=== PATIENT | male | born 1925 | race Asian ===

== ENCOUNTER 2016-12-17 11:09 | Inpatient (IN) | payer MEDICARE, OTHER ==
[~2016-12-17] VITALS: Ht 162.6 cm; Wt 47.9 kg
[~2016-12-17 11:09] MED LIST: ACET-784 PO; AMLO-512 PO; ASPI-556 PO; BENADRYL; DUTA.5; MULTI VIT PO
[2016-12-17] MEDS ORDERED: LISI-660 PO (11:19)
[2016-12-17] MEDS ORDERED: HEPA100D17 SQ (11:19)
[2016-12-17 12:23] LABS: BASOPHILS % (AUTO) 0.2 % (0.0-2.0); EOSINOPHILS % (AUTO) 0.8 % (1.0-6.0); HEMATOCRIT 33.9 % (41-53); HEMOGLOBIN 10.9 g/dL (13.5-17.5); LYMPHOCYTES # (AUTO) 0.8 K/uL (1.0-4.8); LYMPHOCYTES % (AUTO) 5.5 % (22.0-44.0); MEAN CORPUSCULAR HEMOGLOBIN 26.7 pg (26.0-34.0); MEAN CORPUSCULAR HGB CONC 32.3 G/dL (31.0-37.0); MEAN CORPUSCULAR VOLUME 83 fL (80-100); MONOCYTES # (AUTO) 0.9 K/uL (0.1-1.0); MONOCYTES % (AUTO) 6.4 % (2.0-9.0); NEUTROPHILS # (AUTO) 12.4 K/uL (1.8-7.7); NEUTROPHILS % (AUTO) 87.1 % (40.0-70.0); PLATELET COUNT (AUTO) 479 K/uL (150-450); RED BLOOD CELL COUNT(AUTO) 4.08 MIL/uL (4.50-5.90); RED CELL DISTRIBUTION WIDTH 16.1 % (11.5-14.5); WHITE BLOOD COUNT (AUTO) 14.2 K/uL (4.5-11.0)
[2016-12-17 12:32] LABS: ANION GAP 13 mmol/L (8-16); CALCIUM, TOTAL 8.4 mg/dL (8.8-10.5); CARBON DIOXIDE 27 mmol/L (22-29); CHLORIDE 100 mmol/L (98-107); CREATININE 0.86 mg/dL (0.60-1.30); GLOMERULAR FILTR. RATE CALC > 60 mL/min (>60); POTASSIUM 3.5 mmol/L (3.5-5.1); SODIUM SERUM 140 mmol/L (136-145); UREA NITROGEN, BLOOD 11 mg/dL (7-18)
[2016-12-17 12:35] LABS: INFLUENZA TYPE B NEGATIVE FOR TYPE B (NEGATIVE)
[2016-12-17 12:39] LABS: ALANINE AMINOTRANSFERASE 80 U/L (12-78); ALBUMIN 2.2 g/dL (3.4-5.0); ASPARTATE AMINOTRANSFERASE 64 U/L (15-37); BILIRUBIN,TOTAL 0.4 mg/dL (0.1-1.0); CREATINE KINASE, TOTAL 43 U/L (39-308); TOTAL PROTEIN, SERUM 7.8 g/dL (6.4-8.2)
[2016-12-17 12:41] LABS: LACTIC ACID 1.2 mmol/L (0.4-2.0)
[2016-12-17 12:45] LABS: APPEARANCE,URINE CLEAR (CLEAR); GLUCOSE, URINE (UA) NEGATIVE (NEGATIVE); KETONES,URINE >=80 mg/dL (NEGATIVE); LEUKOCYTE ESTERASE ,URINE NEGATIVE (NEGATIVE); OCCULT BLOOD,URINE NEGATIVE (NEGATIVE); PH,URINE 6.5 (5.0-8.0); PROTEIN,URINE SEE CONFIRM (NEGATIVE)
[2016-12-17 12:48] LABS: B-TYPE NATRIURETIC PEPTIDE 159 pg/mL (0-100); RBC MORPHOLOGY COMMENT NORMAL RBC MORPH
[2016-12-17 12:54] LABS: ADD UA MICROSCOPIC YES
[2016-12-17 12:56] LABS: SULFOSALICYLIC ACID,URINE 3+ (Negative)
[2016-12-17 12:57] LABS: RBC,URINE None Seen /HPF (0-2); SQUAMOUS EPITHELIAL CELL,UR Rare /LPF (None Seen); WBC,URINE 0-2 /HPF (0-5)
[2016-12-17 12:58] LABS: HYALINE CASTS, URINE 0-2 /LPF (None Seen)
[2016-12-17 13:31] LABS: PROCALCITONIN (PCT) 0.25 ng/mL (<0.50)
[2016-12-17] MEDS ORDERED: LEVOFLOXACIN 500 MG/D5% WATER 100 ML IV ONE (14:00)
[2016-12-17] MEDS ORDERED: PIPERACILLIN/TAZO 3.375 GM/D5W 50 ML IV ONE (14:00)
[2016-12-17] MEDS ORDERED: ACETAMINOPHEN 325 MG TABLET PO PRN ×2 (14:15→18:45)
[2016-12-17] MEDS ORDERED: ONDANSETRON HCL 4 MG/2 ML VIAL IVP PRN ×2 (14:15→18:45)
[2016-12-17 14:48] VITALS: BP 144/83
[2016-12-17] MEDS ORDERED: ALBUTEROL SULFATE 2.5 MG/0.5 ML NEB SOLUTION NEB SCH (15:00)
[2016-12-17] MEDS ORDERED: IPRATROPIUM BROMIDE 0.5 MG/2.5 ML NEB SOLUTION NEB SCH (15:00)
[2016-12-17] MEDS ORDERED: SODIUM CHLORIDE 0.9% 250 ML IV ONE (15:31)
[2016-12-17] MEDS ORDERED: LEVO88TA4 PO (17:56)
[2016-12-17] MEDS ORDERED: FLUT16H NASAL (17:56)
[2016-12-17] MEDS ORDERED: ALLO100T PO (17:56)
[2016-12-17] MEDS ORDERED: ACET-2247 PO (17:56)
[2016-12-17] MEDS ORDERED: ASPI-1093 PO (17:56)
[2016-12-17] MEDS ORDERED: ROFL500T PO (17:56)
[2016-12-17] MEDS ORDERED: IPRA4AER IH (17:56)
[2016-12-17] MEDS ORDERED: MULT1CAP32 PO (17:56)
[2016-12-17] MEDS ORDERED: MONT10TA21 PO (17:56)
[2016-12-17] MEDS ORDERED: ATOR10TA84 PO (17:56)
[2016-12-17] MEDS ORDERED: FINA5TAB41 PO (17:56)
[2016-12-17] MEDS ORDERED: LISI-661 PO (17:56)
[2016-12-17] MEDS ORDERED: AMLO-512 PO (17:56)
[2016-12-17] MEDS ORDERED: PNEUMOCOCCAL VACCINE POLYVALENT 0.5 ML VIAL [PPSV23] IM ONE (18:30)
[2016-12-17] MEDS ORDERED: HYDROCODONE/ACETAMINOPHEN 5-325 MG TABLET PO PRN ×2 (18:45)
[2016-12-17] MEDS ORDERED: MAGNESIUM HYDROXIDE SUSPENSION 30 ML UDCUP PO PRN (18:45)
[2016-12-17] MEDS ORDERED: ZOLPIDEM TARTRATE 5 MG TABLET PO PRN (18:45)
[2016-12-17] MEDS ORDERED: OxyCODONE HCL/ACETAMINOPHEN 5-325 MG TABLET PO PRN (18:45)
[2016-12-17 19:23] VITALS: BP 130/58
[2016-12-17] MEDS: ALBUTEROL SULFATE 2.5 MG/0.5 ML NEB SOLUTION NEB SCH ×2 (19:45→23:11)
[2016-12-17] MEDS: IPRATROPIUM BROMIDE 0.5 MG/2.5 ML NEB SOLUTION NEB SCH ×2 (19:45→23:11)
[2016-12-17] MEDS ORDERED: IOVERSOL 350 MG/ML 100 ML VIAL ONE (20:41)
[2016-12-17] MEDS ORDERED: SODIUM CHLORIDE 0.9% 100 ML ONE (20:41)
[2016-12-17] MEDS: DOCUSATE SODIUM 100 MG CAPSULE PO SCH (21:31)
[2016-12-17] MEDS: ATORVASTATIN CALCIUM 10 MG TABLET PO SCH (21:31)
[2016-12-17 23:26] VITALS: BP 115/53
[2016-12-17] MEDS: HEPARIN SODIUM,PORCINE 5,000 UNITS/ML VIAL SQ SCH (23:43)
[2016-12-18] MEDS: IPRATROPIUM BROMIDE 0.5 MG/2.5 ML NEB SOLUTION NEB SCH ×6 (03:28→23:15)
[2016-12-18] MEDS: ALBUTEROL SULFATE 2.5 MG/0.5 ML NEB SOLUTION NEB SCH ×6 (03:28→23:15)
[2016-12-18 04:14] VITALS: BP 112/49
[2016-12-18] MEDS: LEVOTHYROXINE SODIUM 88 MCG TABLET PO SCH (06:03)
[2016-12-18 07:55] VITALS: BP 118/66
[2016-12-18] MEDS: MONTELUKAST SODIUM 10 MG TABLET PO SCH (08:39)
[2016-12-18] MEDS: MULTIVITAMINS, THERAPEUTIC TABLET PO SCH (08:39)
[2016-12-18] MEDS: ASPIRIN 81 MG EC TABLET PO SCH (08:39)
[2016-12-18] MEDS: LISINOPRIL 10 MG TABLET PO SCH (08:39)
[2016-12-18] MEDS: HEPARIN SODIUM,PORCINE 5,000 UNITS/ML VIAL SQ SCH ×2 (08:39→16:28)
[2016-12-18] MEDS: DOCUSATE SODIUM 100 MG CAPSULE PO SCH ×2 (08:39→20:15)
[2016-12-18] MEDS: ALLOPURINOL 100 MG TABLET PO SCH (08:40)
[2016-12-18] MEDS: FINASTERIDE 5 MG TABLET PO SCH (08:40)
[2016-12-18] MEDS: AmLODIPine BESYLATE 10 MG TABLET PO SCH (08:40)
[2016-12-18] MEDS: PANTOPRAZOLE SODIUM 40 MG DR TABLET PO SCH (08:40)
[2016-12-18] MEDS: ROFLUMILAST 500 MCG TABLET PO SCH (08:40)
[2016-12-18] MEDS: FLUTICASONE PROPIONATE 50 MCG/SPRAY 16 GM NASAL SPRAY NASAL SCH (08:41)
[2016-12-18] MEDS ORDERED: SODIUM CHLORIDE 0.9% 100 ML ONE (14:35)
[2016-12-18] MEDS: LEVOFLOXACIN 750 MG/D5% WATER 150 ML IV SCH (14:38)
[2016-12-18 15:01] VITALS: BP 139/64
[2016-12-18 16:22] VITALS: BP 122/58
[2016-12-18 18:53] LABS: EOSINOPHILS % (AUTO) 1.3 % (1.0-6.0); HEMATOCRIT 29.4 % (41-53); HEMOGLOBIN 9.5 g/dL (13.5-17.5); LYMPHOCYTES # (AUTO) 0.9 K/uL (1.0-4.8); LYMPHOCYTES % (AUTO) 7.4 % (22.0-44.0); MEAN CORPUSCULAR HEMOGLOBIN 26.6 pg (26.0-34.0); MEAN CORPUSCULAR HGB CONC 32.3 G/dL (31.0-37.0); MEAN CORPUSCULAR VOLUME 82 fL (80-100); MONOCYTES # (AUTO) 1.1 K/uL (0.1-1.0); MONOCYTES % (AUTO) 9.1 % (2.0-9.0); NEUTROPHILS # (AUTO) 9.6 K/uL (1.8-7.7); NEUTROPHILS % (AUTO) 82.2 % (40.0-70.0); PLATELET COUNT (AUTO) 518 K/uL (150-450); RED BLOOD CELL COUNT(AUTO) 3.57 MIL/uL (4.50-5.90); RED CELL DISTRIBUTION WIDTH 16.1 % (11.5-14.5); WHITE BLOOD COUNT (AUTO) 11.6 K/uL (4.5-11.0)
[2016-12-18 19:06] LABS: ANION GAP 9 mmol/L (8-16); CALCIUM, TOTAL 7.9 mg/dL (8.8-10.5); CARBON DIOXIDE 28 mmol/L (22-29); CHLORIDE 104 mmol/L (98-107); CREATININE 0.83 mg/dL (0.60-1.30); GLOMERULAR FILTR. RATE CALC > 60 mL/min (>60); POTASSIUM 3.4 mmol/L (3.5-5.1); SODIUM SERUM 141 mmol/L (136-145); UREA NITROGEN, BLOOD 8 mg/dL (7-18)
[2016-12-18 19:10] LABS: ALANINE AMINOTRANSFERASE 59 U/L (12-78); ALBUMIN 1.8 g/dL (3.4-5.0); ASPARTATE AMINOTRANSFERASE 46 U/L (15-37); BILIRUBIN,TOTAL 0.4 mg/dL (0.1-1.0); TOTAL PROTEIN, SERUM 6.8 g/dL (6.4-8.2)
[2016-12-18 19:43] VITALS: BP 119/55
[2016-12-18] MEDS: ATORVASTATIN CALCIUM 10 MG TABLET PO SCH (20:14)
[2016-12-18 23:04] VITALS: BP 130/89
[2016-12-19] MEDS: HEPARIN SODIUM,PORCINE 5,000 UNITS/ML VIAL SQ SCH ×3 (00:30→15:41)
[2016-12-19] MEDS: IPRATROPIUM BROMIDE 0.5 MG/2.5 ML NEB SOLUTION NEB SCH ×8 (02:54→23:00)
[2016-12-19] MEDS: ALBUTEROL SULFATE 2.5 MG/0.5 ML NEB SOLUTION NEB SCH ×8 (02:54→23:00)
[2016-12-19] MEDS: LORazepam 1 MG TABLET PO PRN ×3 (03:11→16:39)
[2016-12-19 04:05] VITALS: BP 115/50
[2016-12-19] MEDS ORDERED: 0.9% SODIUM CHLORIDE 5 ML NEB SOLUTION NEB ONE (04:38)
[2016-12-19 06:48] LABS: BASOPHILS # (AUTO) 0.02 K/uL (0.00-0.20); BASOPHILS % (AUTO) 0.2 % (0.0-2.0); EOSINOPHILS # (AUTO) 0.07 K/uL (0.00-0.70); EOSINOPHILS % (AUTO) 0.68 % (1.0-6.0); HEMATOCRIT 27.8 % (41-53); HEMOGLOBIN 9.3 g/dL (13.5-17.5); LYMPHOCYTES # (AUTO) 0.6 K/uL (1.0-4.8); LYMPHOCYTES % (AUTO) 5.5 % (22.0-44.0); MEAN CORPUSCULAR HEMOGLOBIN 27.1 pg (26.0-34.0); MEAN CORPUSCULAR HGB CONC 33.5 G/dL (31.0-37.0); MEAN CORPUSCULAR VOLUME 81 fL (80-100); MONOCYTES # (AUTO) 0.8 K/uL (0.1-1.0); MONOCYTES % (AUTO) 7.7 % (2.0-9.0); NEUTROPHILS # (AUTO) 9.5 K/uL (1.8-7.7); PLATELET COUNT (AUTO) 472 K/uL (150-450); RED BLOOD CELL COUNT(AUTO) 3.43 MIL/uL (4.50-5.90); RED CELL DISTRIBUTION WIDTH 16.9 % (11.5-14.5)
[2016-12-19 07:00] LABS: ALANINE AMINOTRANSFERASE 49 U/L (12-78); ALBUMIN 1.7 g/dL (3.4-5.0); ANION GAP 13 mmol/L (8-16); ASPARTATE AMINOTRANSFERASE 37 U/L (15-37); BILIRUBIN,TOTAL 0.3 mg/dL (0.1-1.0); CALCIUM, TOTAL 7.7 mg/dL (8.8-10.5); CARBON DIOXIDE 26 mmol/L (22-29); CHLORIDE 105 mmol/L (98-107); CREATININE 0.88 mg/dL (0.60-1.30); GLOMERULAR FILTR. RATE CALC > 60 mL/min (>60); SODIUM SERUM 144 mmol/L (136-145); TOTAL PROTEIN, SERUM 6.7 g/dL (6.4-8.2); UREA NITROGEN, BLOOD 7 mg/dL (7-18)
[2016-12-19 07:06] LABS: NEUTROPHILS % (AUTO) 86.1 % (40.0-70.0)
[2016-12-19 07:07] LABS: RBC MORPHOLOGY COMMENT NORMAL RBC MORPH
[2016-12-19 07:15] VITALS: BP 114/56
[2016-12-19 07:24] LABS: POTASSIUM 2.9 mmol/L (3.5-5.1)
[2016-12-19] MEDS: AmLODIPine BESYLATE 10 MG TABLET PO SCH (08:42)
[2016-12-19] MEDS: ROFLUMILAST 500 MCG TABLET PO SCH (08:42)
[2016-12-19] MEDS: PANTOPRAZOLE SODIUM 40 MG DR TABLET PO SCH (08:42)
[2016-12-19] MEDS: LISINOPRIL 10 MG TABLET PO SCH (08:42)
[2016-12-19] MEDS: MULTIVITAMINS, THERAPEUTIC TABLET PO SCH (08:42)
[2016-12-19] MEDS: LEVOTHYROXINE SODIUM 88 MCG TABLET PO SCH (08:42)
[2016-12-19] MEDS: ALLOPURINOL 100 MG TABLET PO SCH (08:42)
[2016-12-19] MEDS: FINASTERIDE 5 MG TABLET PO SCH (08:43)
[2016-12-19] MEDS: FLUTICASONE PROPIONATE 50 MCG/SPRAY 16 GM NASAL SPRAY NASAL SCH (08:43)
[2016-12-19] MEDS: DOCUSATE SODIUM 100 MG CAPSULE PO SCH ×2 (08:43→21:00)
[2016-12-19] MEDS: MONTELUKAST SODIUM 10 MG TABLET PO SCH (08:43)
[2016-12-19] MEDS: ASPIRIN 81 MG EC TABLET PO SCH (08:43)
[2016-12-19] MEDS ORDERED: POTASSIUM CHLORIDE 20 MEQ ER TABLET PO ONE ×2 (10:30→16:00)
[2016-12-19 10:56] VITALS: BP 122/62
[2016-12-19] MEDS: LEVOFLOXACIN 750 MG/D5% WATER 150 ML IV SCH (14:36)
[2016-12-19] MEDS ORDERED: SODIUM CHLORIDE 0.9% 100 ML ONE (14:43)
[2016-12-19 15:36] VITALS: BP 118/48
[2016-12-19] MEDS: BENZONATATE 100 MG CAPSULE PO SCH (17:53)
[2016-12-19] MEDS: BUDESONIDE 0.5 MG/2 ML NEB SOLUTION NEB SCH (19:26)
[2016-12-19 20:08] VITALS: BP 131/58
[2016-12-19] MEDS: ATORVASTATIN CALCIUM 10 MG TABLET PO SCH (21:00)
[2016-12-19 23:42] VITALS: BP 116/53
[2016-12-20] MEDS: ALBUTEROL SULFATE 2.5 MG/0.5 ML NEB SOLUTION NEB SCH ×6 (03:00→22:53)
[2016-12-20] MEDS: IPRATROPIUM BROMIDE 0.5 MG/2.5 ML NEB SOLUTION NEB SCH ×6 (03:00→22:53)
[2016-12-20 04:37] VITALS: BP 117/50
[2016-12-20] MEDS: LEVOTHYROXINE SODIUM 88 MCG TABLET PO SCH (05:44)
[2016-12-20 06:41] LABS: ALANINE AMINOTRANSFERASE 41 U/L (12-78); ALBUMIN 1.8 g/dL (3.4-5.0); ANION GAP 8 mmol/L (8-16); ASPARTATE AMINOTRANSFERASE 36 U/L (15-37); BILIRUBIN,TOTAL 0.3 mg/dL (0.1-1.0); CALCIUM, TOTAL 8.5 mg/dL (8.8-10.5); CARBON DIOXIDE 26 mmol/L (22-29); CHLORIDE 109 mmol/L (98-107); CREATININE 0.85 mg/dL (0.60-1.30); GLOMERULAR FILTR. RATE CALC > 60 mL/min (>60); POTASSIUM 4.5 mmol/L (3.5-5.1); SODIUM SERUM 143 mmol/L (136-145); TOTAL PROTEIN, SERUM 6.7 g/dL (6.4-8.2); UREA NITROGEN, BLOOD 8 mg/dL (7-18)
[2016-12-20 06:58] LABS: BASOPHILS # (AUTO) 0.06 K/uL (0.00-0.20); BASOPHILS % (AUTO) 0.7 % (0.0-2.0); EOSINOPHILS # (AUTO) 0.12 K/uL (0.00-0.70); HEMOGLOBIN 9.6 g/dL (13.5-17.5); LYMPHOCYTES # (AUTO) 0.9 K/uL (1.0-4.8); LYMPHOCYTES % (AUTO) 10.1 % (22.0-44.0); MEAN CORPUSCULAR HEMOGLOBIN 27.2 pg (26.0-34.0); MEAN CORPUSCULAR HGB CONC 33.1 G/dL (31.0-37.0); MEAN CORPUSCULAR VOLUME 82 fL (80-100); MONOCYTES # (AUTO) 0.6 K/uL (0.1-1.0); MONOCYTES % (AUTO) 7.1 % (2.0-9.0); NEUTROPHILS % (AUTO) 80.8 % (40.0-70.0); PLATELET COUNT (AUTO) 460 K/uL (150-450); RED BLOOD CELL COUNT(AUTO) 3.54 MIL/uL (4.50-5.90); RED CELL DISTRIBUTION WIDTH 16.7 % (11.5-14.5); WHITE BLOOD COUNT (AUTO) 8.7 K/uL (4.5-11.0)
[2016-12-20 07:09] VITALS: BP 121/57
[2016-12-20] MEDS: MONTELUKAST SODIUM 10 MG TABLET PO SCH (09:41)
[2016-12-20] MEDS: PANTOPRAZOLE SODIUM 40 MG DR TABLET PO SCH (09:41)
[2016-12-20] MEDS: MULTIVITAMINS, THERAPEUTIC TABLET PO SCH (09:41)
[2016-12-20] MEDS: LISINOPRIL 10 MG TABLET PO SCH (09:41)
[2016-12-20] MEDS: ALLOPURINOL 100 MG TABLET PO SCH (09:41)
[2016-12-20] MEDS: ASPIRIN 81 MG EC TABLET PO SCH (09:42)
[2016-12-20] MEDS: ROFLUMILAST 500 MCG TABLET PO SCH (09:42)
[2016-12-20] MEDS: DOCUSATE SODIUM 100 MG CAPSULE PO SCH ×2 (09:42→20:32)
[2016-12-20] MEDS: FINASTERIDE 5 MG TABLET PO SCH (09:42)
[2016-12-20] MEDS: AmLODIPine BESYLATE 10 MG TABLET PO SCH (09:42)
[2016-12-20] MEDS: HEPARIN SODIUM,PORCINE 5,000 UNITS/ML VIAL SQ SCH ×3 (09:43→17:06)
[2016-12-20] MEDS: BENZONATATE 100 MG CAPSULE PO SCH ×3 (09:43→17:05)
[2016-12-20] MEDS: FLUTICASONE PROPIONATE 50 MCG/SPRAY 16 GM NASAL SPRAY NASAL SCH (09:43)
[2016-12-20] MEDS: BUDESONIDE 0.5 MG/2 ML NEB SOLUTION NEB SCH ×2 (10:21→19:47)
[2016-12-20 11:27] VITALS: BP 127/52
[2016-12-20] MEDS ORDERED: SODIUM CHLORIDE 0.9% 100 ML ONE (14:26)
[2016-12-20] MEDS: LEVOFLOXACIN 750 MG/D5% WATER 150 ML IV SCH (14:51)
[2016-12-20 14:58] VITALS: BP 134/57
[2016-12-20 19:34] VITALS: BP 124/62
[2016-12-20] MEDS: GuaiFENesin SR 600 MG ER TABLET PO SCH (20:32)
[2016-12-20] MEDS: ATORVASTATIN CALCIUM 10 MG TABLET PO SCH (20:32)
[2016-12-20 23:54] VITALS: BP 130/67
[2016-12-21] MEDS: BENZONATATE 100 MG CAPSULE PO SCH ×4 (00:46→23:09)
[2016-12-21] MEDS: LORazepam 1 MG TABLET PO PRN (00:46)
[2016-12-21] MEDS: IPRATROPIUM BROMIDE 0.5 MG/2.5 ML NEB SOLUTION NEB SCH ×6 (01:49→22:44)
[2016-12-21] MEDS: ALBUTEROL SULFATE 2.5 MG/0.5 ML NEB SOLUTION NEB SCH ×6 (01:49→22:44)
[2016-12-21 04:28] VITALS: BP 119/51
[2016-12-21] MEDS: LEVOTHYROXINE SODIUM 88 MCG TABLET PO SCH (05:19)
[2016-12-21 07:12] LABS: ALANINE AMINOTRANSFERASE 37 U/L (12-78); ALBUMIN 1.9 g/dL (3.4-5.0); ANION GAP 8 mmol/L (8-16); ASPARTATE AMINOTRANSFERASE 35 U/L (15-37); BILIRUBIN,TOTAL 0.3 mg/dL (0.1-1.0); CALCIUM, TOTAL 8.5 mg/dL (8.8-10.5); CARBON DIOXIDE 29 mmol/L (22-29); CHLORIDE 107 mmol/L (98-107); CREATININE 0.84 mg/dL (0.60-1.30); GLOMERULAR FILTR. RATE CALC > 60 mL/min (>60); POTASSIUM 3.8 mmol/L (3.5-5.1); SODIUM SERUM 144 mmol/L (136-145); TOTAL PROTEIN, SERUM 7.2 g/dL (6.4-8.2); UREA NITROGEN, BLOOD 7 mg/dL (7-18)
[2016-12-21 07:21] LABS: BASOPHILS % (AUTO) 0.7 % (0.0-2.0); EOSINOPHILS % (AUTO) 1.8 % (1.0-6.0); HEMATOCRIT 30.6 % (41-53); HEMOGLOBIN 9.8 g/dL (13.5-17.5); LYMPHOCYTES # (AUTO) 0.7 K/uL (1.0-4.8); LYMPHOCYTES % (AUTO) 7.2 % (22.0-44.0); MEAN CORPUSCULAR HEMOGLOBIN 26.7 pg (26.0-34.0); MEAN CORPUSCULAR VOLUME 83 fL (80-100); MONOCYTES # (AUTO) 0.6 K/uL (0.1-1.0); MONOCYTES % (AUTO) 6.3 % (2.0-9.0); NEUTROPHILS # (AUTO) 7.6 K/uL (1.8-7.7); PLATELET COUNT (AUTO) 439 K/uL (150-450); RED BLOOD CELL COUNT(AUTO) 3.67 MIL/uL (4.50-5.90); RED CELL DISTRIBUTION WIDTH 16.7 % (11.5-14.5); WHITE BLOOD COUNT (AUTO) 9.1 K/uL (4.5-11.0)
[2016-12-21] MEDS: BUDESONIDE 0.5 MG/2 ML NEB SOLUTION NEB SCH ×2 (07:52→19:42)
[2016-12-21 08:28] VITALS: BP 141/62
[2016-12-21] MEDS: HEPARIN SODIUM,PORCINE 5,000 UNITS/ML VIAL SQ SCH ×4 (08:57→23:10)
[2016-12-21] MEDS: FLUTICASONE PROPIONATE 50 MCG/SPRAY 16 GM NASAL SPRAY NASAL SCH (08:57)
[2016-12-21] MEDS: DOCUSATE SODIUM 100 MG CAPSULE PO SCH ×2 (08:57→20:32)
[2016-12-21] MEDS: ASPIRIN 81 MG EC TABLET PO SCH (08:57)
[2016-12-21] MEDS: MONTELUKAST SODIUM 10 MG TABLET PO SCH (08:58)
[2016-12-21] MEDS: AmLODIPine BESYLATE 10 MG TABLET PO SCH (08:58)
[2016-12-21] MEDS: GuaiFENesin SR 600 MG ER TABLET PO SCH ×2 (08:58→20:32)
[2016-12-21] MEDS: MULTIVITAMINS, THERAPEUTIC TABLET PO SCH (08:58)
[2016-12-21] MEDS: LISINOPRIL 10 MG TABLET PO SCH (08:58)
[2016-12-21] MEDS: FINASTERIDE 5 MG TABLET PO SCH (08:58)
[2016-12-21] MEDS: ROFLUMILAST 500 MCG TABLET PO SCH (08:59)
[2016-12-21] MEDS: ALLOPURINOL 100 MG TABLET PO SCH (08:59)
[2016-12-21] MEDS: PANTOPRAZOLE SODIUM 40 MG DR TABLET PO SCH (09:03)
[2016-12-21 11:45] VITALS: BP 138/68
[2016-12-21] MEDS: LEVOFLOXACIN 750 MG/D5% WATER 150 ML IV SCH (14:12)
[2016-12-21 15:09] VITALS: BP 136/58
[2016-12-21 19:26] VITALS: BP 136/63
[2016-12-21] MEDS: ATORVASTATIN CALCIUM 10 MG TABLET PO SCH (20:32)
[2016-12-21 23:59] VITALS: BP 127/61
[2016-12-22] MEDS: ALBUTEROL SULFATE 2.5 MG/0.5 ML NEB SOLUTION NEB SCH ×4 (03:15→15:49)
[2016-12-22] MEDS: IPRATROPIUM BROMIDE 0.5 MG/2.5 ML NEB SOLUTION NEB SCH ×4 (03:15→15:50)
[2016-12-22 04:11] VITALS: BP 131/57
[2016-12-22] MEDS: LEVOTHYROXINE SODIUM 88 MCG TABLET PO SCH (05:33)
[2016-12-22 06:27] LABS: BASOPHILS % (AUTO) 0.7 % (0.0-2.0); EOSINOPHILS % (AUTO) 1.9 % (1.0-6.0); HEMATOCRIT 31.1 % (41-53); HEMOGLOBIN 9.9 g/dL (13.5-17.5); LYMPHOCYTES # (AUTO) 0.6 K/uL (1.0-4.8); LYMPHOCYTES % (AUTO) 6.6 % (22.0-44.0); MEAN CORPUSCULAR HEMOGLOBIN 26.7 pg (26.0-34.0); MEAN CORPUSCULAR VOLUME 84 fL (80-100); MONOCYTES # (AUTO) 0.5 K/uL (0.1-1.0); MONOCYTES % (AUTO) 5.9 % (2.0-9.0); NEUTROPHILS # (AUTO) 7.6 K/uL (1.8-7.7); NEUTROPHILS % (AUTO) 84.9 % (40.0-70.0); PLATELET COUNT (AUTO) 431 K/uL (150-450); RED BLOOD CELL COUNT(AUTO) 3.72 MIL/uL (4.50-5.90); RED CELL DISTRIBUTION WIDTH 16.5 % (11.5-14.5); WHITE BLOOD COUNT (AUTO) 8.9 K/uL (4.5-11.0)
[2016-12-22 07:11] LABS: ALANINE AMINOTRANSFERASE 32 U/L (12-78); ANION GAP 9 mmol/L (8-16); ASPARTATE AMINOTRANSFERASE 31 U/L (15-37); BILIRUBIN,TOTAL 0.3 mg/dL (0.1-1.0); CALCIUM, TOTAL 8.4 mg/dL (8.8-10.5); CARBON DIOXIDE 28 mmol/L (22-29); CHLORIDE 103 mmol/L (98-107); GLOMERULAR FILTR. RATE CALC > 60 mL/min (>60); POTASSIUM 3.6 mmol/L (3.5-5.1); SODIUM SERUM 140 mmol/L (136-145); TOTAL PROTEIN, SERUM 7.1 g/dL (6.4-8.2); UREA NITROGEN, BLOOD 7 mg/dL (7-18)
[2016-12-22 07:44] LABS: RBC MORPHOLOGY COMMENT NORMAL RBC MORPH
[2016-12-22] MEDS: BUDESONIDE 0.5 MG/2 ML NEB SOLUTION NEB SCH (07:47)
[2016-12-22 08:03] VITALS: BP 135/70
[2016-12-22] MEDS: BENZONATATE 100 MG CAPSULE PO SCH (08:23)
[2016-12-22] MEDS: FINASTERIDE 5 MG TABLET PO SCH (08:23)
[2016-12-22] MEDS: MULTIVITAMINS, THERAPEUTIC TABLET PO SCH (08:23)
[2016-12-22] MEDS: MONTELUKAST SODIUM 10 MG TABLET PO SCH (08:23)
[2016-12-22] MEDS: ASPIRIN 81 MG EC TABLET PO SCH (08:23)
[2016-12-22] MEDS: PANTOPRAZOLE SODIUM 40 MG DR TABLET PO SCH (08:23)
[2016-12-22] MEDS: DOCUSATE SODIUM 100 MG CAPSULE PO SCH (08:23)
[2016-12-22] MEDS: ROFLUMILAST 500 MCG TABLET PO SCH (08:23)
[2016-12-22] MEDS: GuaiFENesin SR 600 MG ER TABLET PO SCH (08:23)
[2016-12-22] MEDS: AmLODIPine BESYLATE 10 MG TABLET PO SCH (08:23)
[2016-12-22] MEDS: ALLOPURINOL 100 MG TABLET PO SCH (08:23)
[2016-12-22] MEDS: LISINOPRIL 10 MG TABLET PO SCH (08:23)
[2016-12-22] MEDS: FLUTICASONE PROPIONATE 50 MCG/SPRAY 16 GM NASAL SPRAY NASAL SCH (08:24)
[2016-12-22] MEDS: HEPARIN SODIUM,PORCINE 5,000 UNITS/ML VIAL SQ SCH (08:24)
[2016-12-22 11:53] VITALS: BP 150/60
[2016-12-22] MEDS: LEVOFLOXACIN 750 MG/D5% WATER 150 ML IV SCH (14:55)
[2016-12-22 15:00] VITALS: BP 147/70
[2016-12-22] MEDS ORDERED: BENZ-26 PO (15:05)
[2016-12-22] MEDS ORDERED: BUDE0.5A3 NEB (15:06)
[2016-12-22] MEDS ORDERED: GUAIF600 PO (15:07)
[2016-12-22] MEDS ORDERED: LEVO500 PO (15:07)
== END 2016-12-22 16:30 | disposition home or self-care (01) | DRG 871 ==
LOC: EMS 11:11 → 5S 14:17 → MERGE 14:17 → 5S 12-19 22:40
PROVIDERS: ADMIT Hospitalist; ATTEND Hospitalist
DX: A41.9 Sepsis, unspecified organism (principal); J18.9 Pneumonia, unspecified organism; E43 Unspecified severe protein-calorie malnutrition; J44.0 Chronic obstructive pulmonary disease with (acute) lower respiratory infection; Z68.1 Body mass index [BMI] 19.9 or less, adult; E78.5 Hyperlipidemia, unspecified; I10 Essential (primary) hypertension; N40.0 Benign prostatic hyperplasia without lower urinary tract symptoms; E88.89 Other specified metabolic disorders; E03.9 Hypothyroidism, unspecified; R01.1 Cardiac murmur, unspecified; D64.9 Anemia, unspecified; J45.909 Unspecified asthma, uncomplicated; Z79.899 Other long term (current) drug therapy; Z87.891 Personal history of nicotine dependence; Z85.118 Personal history of other malignant neoplasm of bronchus and lung; Z98.890 Other specified postprocedural states; Z28.21 Immunization not carried out because of patient refusal
CPT/HCPCS: 71260; 83605; 84132; 84145; 87040; 87081; 87804; 92610; 93005; 93306; 94640; 94660; 94667; 94668; 97162; 97530; 99285; J1644; J1956; J2543; J7050

== ENCOUNTER 2017-02-10 16:05 | Inpatient (IN) | payer MEDICARE, OTHER ==
[~2017-02-10] VITALS: Ht 165.1 cm; Wt 48.6 kg
[~2017-02-10 16:05] MED LIST changes: +ACET-2247 PO; +ALLO100T PO; +ASPI-1093 PO; +ATOR10TA84 PO; +BENZ-26 PO; +BUDE0.5A3 NEB; +FINA5TAB41 PO; +FLUT16H NASAL; +GUAIF600 PO; +IPRA4AER IH; +LEVO500 PO; +LEVO88TA4 PO; +LISI-660 PO; +LISI-661 PO; +MONT10TA21 PO; +MULT1CAP32 PO; +ROFL500T PO
[2017-02-10] MEDS ORDERED: BUDE10.2 IH (16:28)
[2017-02-10] MEDS ORDERED: LEVAHFA IH (16:28)
[2017-02-10] MEDS ORDERED: FLUT16H NASAL (16:28)
[2017-02-10] MEDS ORDERED: SODIUM CHLORIDE 0.9% 1,000 ML IV ONE (17:14)
[2017-02-10] MEDS ORDERED: ONDANSETRON HCL 4 MG/2 ML VIAL IVP ONE (17:15)
[2017-02-10] MEDS ORDERED: MORPHINE SULFATE 4 MG/ML SYRINGE IVP ONE (17:15)
[2017-02-10 17:24] LABS: EOSINOPHILS % (AUTO) 7.5 % (1.0-6.0); HEMATOCRIT 40.7 % (41-53); HEMOGLOBIN 12.7 g/dL (13.5-17.5); LYMPHOCYTES # (AUTO) 1.8 K/uL (1.0-4.8); LYMPHOCYTES % (AUTO) 22.7 % (22.0-44.0); MEAN CORPUSCULAR HEMOGLOBIN 27.1 pg (26.0-34.0); MEAN CORPUSCULAR HGB CONC 31.3 G/dL (31.0-37.0); MEAN CORPUSCULAR VOLUME 87 fL (80-100); MONOCYTES # (AUTO) 0.4 K/uL (0.1-1.0); MONOCYTES % (AUTO) 4.4 % (2.0-9.0); NEUTROPHILS # (AUTO) 5.3 K/uL (1.8-7.7); NEUTROPHILS % (AUTO) 65.4 % (40.0-70.0); PLATELET COUNT (AUTO) 395 K/uL (150-450); RED CELL DISTRIBUTION WIDTH 17.9 % (11.5-14.5); WHITE BLOOD COUNT (AUTO) 8.1 K/uL (4.5-11.0)
[2017-02-10 17:26] LABS: RBC MORPHOLOGY COMMENT ABNORMAL RBC MORPH
[2017-02-10 17:41] LABS: ANION GAP 9 mmol/L (8-16); CALCIUM, TOTAL 9.4 mg/dL (8.8-10.5); CARBON DIOXIDE 28 mmol/L (22-29); CHLORIDE 96 mmol/L (98-107); CREATININE 0.97 mg/dL (0.60-1.30); GLOMERULAR FILTR. RATE CALC > 60 mL/min (>60); POTASSIUM 4.1 mmol/L (3.5-5.1); SODIUM SERUM 133 mmol/L (136-145); UREA NITROGEN, BLOOD 14 mg/dL (7-18)
[2017-02-10 17:44] LABS: ALANINE AMINOTRANSFERASE 36 U/L (12-78); ALBUMIN 3.7 g/dL (3.4-5.0); ASPARTATE AMINOTRANSFERASE 25 U/L (15-37); BILIRUBIN,TOTAL 0.2 mg/dL (0.1-1.0); TOTAL PROTEIN, SERUM 9.2 g/dL (6.4-8.2)
[2017-02-10] MEDS ORDERED: ACETAMINOPHEN 1000 MG/ISO-OSM 100 ML IV ONE (18:00)
[2017-02-10] MEDS ORDERED: BARIUM SULFATE 0.1% SUSPENSION 450 ML BOTTLE PO ONE (18:00)
[2017-02-10 18:17] LABS: APPEARANCE,URINE CLEAR (CLEAR); GLUCOSE, URINE (UA) NEGATIVE (NEGATIVE); KETONES,URINE NEGATIVE (NEGATIVE); LEUKOCYTE ESTERASE ,URINE NEGATIVE (NEGATIVE); OCCULT BLOOD,URINE NEGATIVE (NEGATIVE); PH,URINE 7.5 (5.0-8.0); PROTEIN,URINE NEGATIVE (NEGATIVE)
[2017-02-10 18:23] LABS: ADD UA MICROSCOPIC NO
[2017-02-10] MEDS ORDERED: SODIUM CHLORIDE 0.9% 100 ML ONE (18:43)
[2017-02-10] MEDS ORDERED: IOVERSOL 320 MG/ML 100 ML VIAL ONE (18:43)
[2017-02-10 20:07] LABS: PROTHROMBIN TIME 10.2 SEC (9.4-11.6)
[2017-02-10 21:58] VITALS: BP 149/76
[2017-02-10] MEDS ORDERED: DEXTROSE 5%-0.45% SODIUM CHL 1,000 ML IV ONE (22:45)
[2017-02-10] MEDS: ACETAMINOPHEN 325 MG TABLET PO PRN (22:54)
[2017-02-10] MEDS ORDERED: PEG 3350/NA SULF,BICARB,CL/KCL 4000 ML SOLUTION PO ONE (23:15)
[2017-02-10 23:31] VITALS: BP 138/71
[2017-02-10] MEDS: PANTOPRAZOLE SODIUM 40 MG/VIAL IVP SCH (23:53)
[2017-02-11] MEDS: MetroNIDAZOLE 250 MG/NACL 50 ML IV SCH ×3 (00:46→16:15)
[2017-02-11] MEDS: ACETAMINOPHEN 325 MG TABLET PO PRN (04:34)
[2017-02-11 05:10] VITALS: BP 150/70
[2017-02-11 06:59] VITALS: BP 143/65
[2017-02-11 07:12] LABS: BASOPHILS # (AUTO) 0.06 K/uL (0.00-0.20); BASOPHILS % (AUTO) 0.8 % (0.0-2.0); EOSINOPHILS # (AUTO) 0.55 K/uL (0.00-0.70); EOSINOPHILS % (AUTO) 7.14 % (1.0-6.0); HEMATOCRIT 34.6 % (41-53); HEMOGLOBIN 11.3 g/dL (13.5-17.5); LYMPHOCYTES # (AUTO) 1.6 K/uL (1.0-4.8); LYMPHOCYTES % (AUTO) 21.3 % (22.0-44.0); MEAN CORPUSCULAR HEMOGLOBIN 28.5 pg (26.0-34.0); MEAN CORPUSCULAR HGB CONC 32.7 G/dL (31.0-37.0); MEAN CORPUSCULAR VOLUME 87 fL (80-100); MONOCYTES # (AUTO) 0.6 K/uL (0.1-1.0); MONOCYTES % (AUTO) 7.3 % (2.0-9.0); NEUTROPHILS # (AUTO) 4.9 K/uL (1.8-7.7); NEUTROPHILS % (AUTO) 63.5 % (40.0-70.0); PLATELET COUNT (AUTO) 385 K/uL (150-450); RED BLOOD CELL COUNT(AUTO) 3.98 MIL/uL (4.50-5.90); RED CELL DISTRIBUTION WIDTH 17.8 % (11.5-14.5); WHITE BLOOD COUNT (AUTO) 7.7 K/uL (4.5-11.0)
[2017-02-11] MEDS: PANTOPRAZOLE SODIUM 40 MG/VIAL IVP SCH ×2 (07:53→20:32)
[2017-02-11] MEDS: LEVOFLOXACIN 500 MG TABLET PO SCH (08:11)
[2017-02-11 09:50] LABS: RBC MORPHOLOGY COMMENT ABNORMAL RBC MORPH
[2017-02-11] MEDS ORDERED: PEG 3350/NA SULF,BICARB,CL/KCL 4000 ML SOLUTION PO ONE (10:00)
[2017-02-11 11:39] VITALS: BP 132/59
[2017-02-11 15:20] VITALS: BP 142/62
[2017-02-11] MEDS ORDERED: SODIUM CHLORIDE 0.9% 100 ML ONE (16:51)
[2017-02-11 19:34] VITALS: BP 134/60
[2017-02-11 23:08] VITALS: BP 158/70
[2017-02-12] MEDS: MetroNIDAZOLE 250 MG/NACL 50 ML IV SCH ×3 (00:19→16:45)
[2017-02-12] MEDS ORDERED: PROPOFOL 1% 20 ML VIAL IVP ONE (00:32)
[2017-02-12 04:20] VITALS: BP 152/68
[2017-02-12 07:11] VITALS: BP 146/60
[2017-02-12] MEDS: LEVOFLOXACIN 500 MG TABLET PO SCH ×2 (08:49→16:53)
[2017-02-12] MEDS: PANTOPRAZOLE SODIUM 40 MG/VIAL IVP SCH ×2 (08:49→20:08)
[2017-02-12] MEDS ORDERED: SODIUM CHLORIDE 0.9% 1,000 ML IV ONE ×2 (09:45→10:00)
[2017-02-12 11:30] VITALS: BP 136/59
[2017-02-12 14:44] VITALS: BP 126/48
[2017-02-12 19:13] VITALS: BP 134/50
[2017-02-12 23:49] VITALS: BP 118/51
[2017-02-13] MEDS: MetroNIDAZOLE 250 MG/NACL 50 ML IV SCH ×4 (00:43→23:48)
[2017-02-13 04:54] VITALS: BP 112/49
[2017-02-13 07:39] VITALS: BP 121/55
[2017-02-13] MEDS: LEVOFLOXACIN 500 MG TABLET PO SCH (08:18)
[2017-02-13] MEDS: PANTOPRAZOLE SODIUM 40 MG/VIAL IVP SCH ×2 (08:18→20:15)
[2017-02-13 11:11] VITALS: BP 124/62
[2017-02-13 15:48] VITALS: BP 122/47
[2017-02-13 19:27] VITALS: BP 120/45
[2017-02-13] MEDS ORDERED: SODIUM CHLORIDE 0.9% 250 ML IV ONE (23:34)
[2017-02-13 23:52] VITALS: BP 126/46
[2017-02-14 04:34] VITALS: BP 127/54
[2017-02-14 06:45] LABS: BASOPHILS % (AUTO) 0.3 % (0.0-2.0); EOSINOPHILS % (AUTO) 11.1 % (1.0-6.0); HEMATOCRIT 32.7 % (41-53); HEMOGLOBIN 10.4 g/dL (13.5-17.5); LYMPHOCYTES # (AUTO) 1.4 K/uL (1.0-4.8); LYMPHOCYTES % (AUTO) 19.4 % (22.0-44.0); MEAN CORPUSCULAR HEMOGLOBIN 27.6 pg (26.0-34.0); MEAN CORPUSCULAR HGB CONC 31.9 G/dL (31.0-37.0); MEAN CORPUSCULAR VOLUME 86 fL (80-100); MONOCYTES # (AUTO) 0.9 K/uL (0.1-1.0); MONOCYTES % (AUTO) 12.2 % (2.0-9.0); NEUTROPHILS # (AUTO) 4.1 K/uL (1.8-7.7); PLATELET COUNT (AUTO) 309 K/uL (150-450); RED BLOOD CELL COUNT(AUTO) 3.78 MIL/uL (4.50-5.90); RED CELL DISTRIBUTION WIDTH 17.1 % (11.5-14.5); WHITE BLOOD COUNT (AUTO) 7.2 K/uL (4.5-11.0)
[2017-02-14 07:03] LABS: ANION GAP 7 mmol/L (8-16); CALCIUM, TOTAL 8.2 mg/dL (8.8-10.5); CARBON DIOXIDE 26 mmol/L (22-29); CHLORIDE 102 mmol/L (98-107); GLOMERULAR FILTR. RATE CALC > 60 mL/min (>60); POTASSIUM 3.7 mmol/L (3.5-5.1); SODIUM SERUM 135 mmol/L (136-145); UREA NITROGEN, BLOOD 8 mg/dL (7-18)
[2017-02-14 07:52] VITALS: BP 125/48
[2017-02-14] MEDS: LEVOFLOXACIN 500 MG TABLET PO SCH (09:00)
[2017-02-14] MEDS: MetroNIDAZOLE 250 MG/NACL 50 ML IV SCH ×2 (09:21→16:12)
[2017-02-14] MEDS: PANTOPRAZOLE SODIUM 40 MG/VIAL IVP SCH (09:21)
[2017-02-14 11:43] VITALS: BP 115/49
[2017-02-14 15:31] VITALS: BP 132/59
[2017-02-14] MEDS ORDERED: PANT40TA25 PO (17:33)
== END 2017-02-14 18:30 | disposition home health service (06) | DRG 393 ==
LOC: EMS 16:07 → 5N 21:00
PROVIDERS: ADMIT Internal Medicine; ATTEND Internal Medicine
PROC: 0DBN8ZZ Excision of Sigmoid Colon, Via Natural or Artificial Opening Endoscopic (ICD-10-PCS; 2017-02-12)
PROC: 0DB68ZX Excision of Stomach, Via Natural or Artificial Opening Endoscopic, Diagnostic (ICD-10-PCS; principal; 2017-02-12 11:00)
DX: D12.5 Benign neoplasm of sigmoid colon (principal); K57.31 Diverticulosis of large intestine without perforation or abscess with bleeding; K40.90 Unilateral inguinal hernia, without obstruction or gangrene, not specified as recurrent; K52.9 Noninfective gastroenteritis and colitis, unspecified; K80.20 Calculus of gallbladder without cholecystitis without obstruction; K59.00 Constipation, unspecified; I10 Essential (primary) hypertension; Z79.899 Other long term (current) drug therapy; N28.1 Cyst of kidney, acquired; J44.9 Chronic obstructive pulmonary disease, unspecified; K64.8 Other hemorrhoids; K29.00 Acute gastritis without bleeding
CPT/HCPCS: 74177; 82271; 83605; 86850; 86900; 86901; 88305; 88312; 88342; 93005; 96361; 96374; 99291; C9113; J0131; J2270; J2405; J2704; J3490; J7030; J7050